=== PATIENT | female | born 1985 | race Caucasian/White ===

== ENCOUNTER 2016-07-23 23:45 | Emergency (ER) | payer OTHER ==
[2016-07-23 23:48] VITALS: BP 142/88; PULSE 98; RESP 18; TEMP 100; O2SAT 97
--- NOTE | 2016-07-24 01:03 | PD ---
HPI Chief Complaint: Cold / Flu Symptoms Time Seen by Provider: 01:03 Travel History International Travel<30 days: No Contact w/Intl Traveler<30days: No Traveled to known affect area: No History of Present Illness HPI 31-year-old female with no significant medical history presents to emergency department for evaluation of body aches, subjective fever, chills, acute onset today. Denies any chest pain or tightness. No difficulty breathing. No urinary symptoms. Denies any abdominal pain. She has no other symptoms to report. [facility] Past Medical History Medical History: Denies Significant Hx ?: Not Social History Alcohol Use: No Tobacco Use: No Substance Use: No Allergies-Medications (Allergen,Severity, Reaction): Coded Allergies: Penicillin (Verified Allergy, Severe, 07/24/16) Review of Systems Except as stated in HPI: all other systems reviewed are Neg Physical Exam Narrative GENERAL: Well-nourished, well-developed female patient, in no acute distress SKIN: Focused skin assessment warm/dry. HEAD: Normocephalic. EYES: No scleral icterus. No injection or drainage. ENT: Mucosa pink and moist. No erythema or exudates. No uvular edema. No uvular , palatal, or tonsillar deviation. Airway patent. Nasal turbinates appear normal without nasal blood, purulent drainage or septal hematoma. NECK: Supple, trachea midline. No JVD or lymphadenopathy. No nuchal rigidity CARDIOVASCULAR: Regular rate and rhythm without murmurs, gallops, or rubs. RESPIRATORY: Breath sounds equal bilaterally. No accessory muscle use. Abdomen: Abdomen soft, non-tender, nondistended. Positive bowel sounds. No hepato-splenomegaly, or palpable masses. No guarding. MUSCULOSKELETAL: No cyanosis, or edema. BACK: Nontender without obvious deformity. No CVA tenderness. Data Data Last Documented VS Vital Signs Date Time Temp Pulse Resp B/P Pulse Ox O2 Delivery O2 Flow Rate FiO2 07/23/16 23:48 100.0 98 18 142/88 97 Room Air Orders Influenzae A/B Antigen (07/24/16 01:07) Group A Rapid Strep Screen (07/24/16 01:07) Ketorolac Inj (Toradol Inj) (07/24/16 01:15) Ondansetron Odt (Zofran Odt) (07/24/16 01:15) Strep Culture (Group A) (07/24/16 01:45) MDM Medical Decision Making Medical Screen Exam Complete: Yes Emergency Medical Condition: Yes Medical Record Reviewed: Yes Differential Diagnosis Influenza versus viral syndrome versus strep pharyngitis versus viral URI versus common cold versus pneumonia Narrative Course 31 year-old female presents to emergency department for evaluation. Patient appears is that she does not feel well. She has low-grade temperature and heart rate is slightly elevated. Influenza and strep screen are negative. This is likely a viral illness. Patient is given a work note. She is counseled on symptomatic management. She agrees to return immediately with any acute worsening of symptoms. Diagnosis Primary Impression: Flu-like symptoms Referrals: Primary Care Physician Patient Instructions: General Instructions, Influenza (ED) Departure Forms: Tests/Procedures, Work Release Enter return to work date: July 26, 2016 Additional Instructions: Rest Maintain adequate oral hydration Tylenol and/or ibuprofen as directed on the package as needed for fever and/or pain Follow up with your primary care provider Return to ED with acute worsening of symptoms Med/Other Pt SpecificInfo: No Meds Exist/No RX given Disposition: 01 DISCHARGE HOME Condition: Stable Diana Briones July 24, 2016 01:03
[2016-07-24] MEDS ORDERED: KETOROLAC TROMETHAMINE 60 MG/2 ML (IM) VIAL IM ONE (01:15)
[2016-07-24] MEDS ORDERED: ONDANSETRON ODT 4 MG TAB PO ONE (01:15)
== END 2016-07-24 03:12 | disposition home or self-care (01) ==
LOC: NEPK 23:45
DX: M79.1 Myalgia (principal); R50.9 Fever, unspecified; R00.0 Tachycardia, unspecified
CPT/HCPCS: 87081; 87804; 87880; 96372; 99283; J1885